=== PATIENT | male | born 1970 | race Hispanic/Latino ===

== ENCOUNTER 2018-02-19 08:22 | Outpatient (CLI) | payer BC ==
--- NOTE | 2018-02-19 10:07 | ULT ---
ABDOMINAL ULTRASOUND: DATE: 02/19/18. HISTORY: Hepatomegaly/splenomegaly. COMPARISON: None available. FINDINGS: He liver is at the upper limits of normal in size in craniocaudal dimensions measuring 17 cm, but oth erwise has a normal sonographic appearance. The spleen is not well seen due to shadowing from adjacent ribs but where visualized does appear to b e within normal limits. The greatest obtained measurement is 12 cm, which within normal limits. There is a small amount of echogenic material within the gallbladder lumen likely related to a small amount of gallbladder sludge. There is no gallbladder wall thickening or cystic fluid, and no gallbl adder calculi are seen. The common duct measures 0.3 cm in diameter, which is within normal limits. The visualized portion of the pancreas, visualized portions of the IVC, abdominal aorta, and bilatera l kidneys demonstrate a normal sonographic appearance. The right kidney measures 11.3 cm with the le ft kidney measuring 11.1 cm in length. IMPRESSION: 1. Trace amount of sludge within the gallbladder lumen. No gallbladder calculi are seen. 2. The spleen is partially obscured due to shadowing from adjacent ribs but is not enlarged in crani ocaudal dimensions. 3. The liver is at the upper limits of normal in size. POS: [facility]
== END 2018-02-19 08:23 | disposition home or self-care (01) ==
LOC: SCSULT 08:22
PROVIDERS: ATTEND Internal Medicine Hematology & Oncology
DX: D72.818 Other decreased white blood cell count (principal)
CPT/HCPCS: 76700

== ENCOUNTER 2018-11-04 09:26 | Outpatient (CLI) | payer BC ==
[~2018-11-04 09:26] MED LIST: Sodium Chloride 0.9% 15 ML NEB ONE
--- NOTE | 2018-11-05 00:19 | HP ---
HISTORY OF PRESENT ILLNESS: Mr. Chas Andre is a very pleasant 48-year-old gentleman, who presents [facility] for evaluation of an ulceration of the right medial lower leg in the region of the malleolus. The patient states that in April 2018, he noted the presence of a wound of his right lower leg in the region of the malleolus, which he attributed to irritation from his boot. The patient acquired a new pair of boots, but the wound still failed to progress in terms of healing in a timely manner. The patient was seen by Dr. Villa and referred to the [facility] for further evaluation and treatment. The patient's medical history is significant for venous ablation on the right in the past. The patient states that he also utilizes compression garments. PAST MEDICAL HISTORY: Negative for diabetes mellitus, hypertension, or coronary artery disease. The patient reports a history of childhood asthma. PAST SURGICAL HISTORY: 1. Herniorrhaphy. 2. Tonsillectomy. MEDICATIONS: Vitamin C. ALLERGIES: NO KNOWN DIAGNOSED ALLERGIES. SOCIAL HISTORY: Negative for tobacco use. The patient admits to the consumption of 8-10 glasses of wine per year. FAMILY HISTORY: Family history significant for coronary artery disease. The patient's father was diagnosed with coronary artery disease. Family history is negative for diabetes mellitus. PHYSICAL EXAMINATION: VITAL SIGNS: Temperature 98.0, pulse 58, blood pressure 108/60. GENERAL: A 48-year-old gentleman, lying on table in examination room, in no acute distress. HEENT: Normocephalic, atraumatic. NECK: No nuchal rigidity. CHEST: Clear to auscultation. CV: Regular rate and rhythm. ABDOMEN: Soft. EXTREMITIES: The ulceration over the right medial lower leg in the region of the malleolus has healed completely. A posterior tibial pulse is palpable on the right. [id number]-[id number] edema of the right and left lower extremities is present on exam today. NEUROLOGIC: Grossly nonfocal. ASSESSMENT AND PLAN: Varicose veins with ulcer and inflammation. The patient has been recommended to follow up with the provider who performed his venous ablation. The patient has also been advised to continue to utilize his compression garments. In addition arrangements may be made for in-home lymphedema therapy with a pneumatic pump, if the patient decides to proceed with in-home lymphedema therapy. I have also recommended aquatic therapy to Mr. Andre. The patient understands and is in agreement with the preceding treatment plan. He states he will consider proceeding with arrangements for in-home lymphedema therapy and may return to clinic on 11/11/2018, at which time these arrangements will be made. Job ID: [id number] MTDD
== END 2018-11-04 09:27 | disposition home or self-care (01) ==
LOC: WCC 09:26
PROVIDERS: ATTEND Family Medicine
DX: I83.218 Varicose veins of right lower extremity with both ulcer of other part of lower extremity and inflammation (principal); L97.919 Non-pressure chronic ulcer of unspecified part of right lower leg with unspecified severity
CPT/HCPCS: 97602; 99203; A4218; G0463

== ENCOUNTER 2020-03-16 07:29 | Outpatient (CLI) | payer BC ==
--- NOTE | 2020-03-16 08:23 | ULT ---
ULTRASOUND ABDOMEN COMPLETE: DATE: 03/16/2020 HISTORY: 49-year-old male with splenomegaly are 16.1. Follow-up. COMPARISON: 02/19/2018 FINDINGS: Gallbladder: Normal wall thickness. No gallstones identified. No pericholecystic fluid. Tiny amount o f gallbladder sludge. Liver: Normal parenchymal echogenicity. 20 cm craniocaudal length of right lobe. Bilateral kidneys: No hydronephrosis. Pancreas: Nonspecific sonographic appearance. Common duct caliber: 4 mm. Abdominal aorta: No aneurysm Inferior vena cava: Unremarkable where visualized. Spleen: 12.5 x 4.5 x 4.5 cm. Normal hilar concavity maintained, with no lobulations. IMPRESSION: 1) mild hepatomegaly. 2) spleen is near upper limits of normal in size, but this is not considered splenomegaly. 3) tiny amount of gallbladder sludge. 4) no interval change
== END 2020-03-16 07:30 | disposition home or self-care (01) ==
LOC: SCSULT 07:29
PROVIDERS: ATTEND Internal Medicine Hematology & Oncology
DX: R16.1 Splenomegaly, not elsewhere classified (principal); R16.0 Hepatomegaly, not elsewhere classified; K82.8 Other specified diseases of gallbladder
CPT/HCPCS: 93975

== ENCOUNTER 2021-04-30 17:13 | Day surgery (SDC) | payer BC, OTHER ==
[2021-04-30] MEDS ORDERED: EPINEPHRINE FS SCH (18:15)
[2021-04-30] MEDS ORDERED: ENOXAPARIN SODIUM FS SCH (18:15)
[2021-04-30] MEDS ORDERED: Phenylephrine 2.5% Ophth Soln 5 ML BOT ONE (18:22)
[2021-04-30] MEDS ORDERED: Cyclopentolate 1% Opth Drop 2 ML BOT ONE (18:22)
[2021-04-30 18:35] LABS: SARS-CoV-2 NAA Rapid Test Not Detected (NotDetected)
[2021-04-30] MEDS ORDERED: Fentanyl 100 MCG/2 ML VIAL ONE (19:19)
[2021-04-30] MEDS ORDERED: Midazolam HCl 2 mg/2 ml Vial ONE (19:19)
[2021-04-30] MEDS ORDERED: CEFAZOLIN 1 GM VIAL ONE (19:34)
[2021-04-30] MEDS ORDERED: Maxitrol 0.1% Opth Oint 3.5 GM TUBE ONE (19:34)
[2021-04-30] MEDS ORDERED: PROPOFOL 200 MG/20 ML VIAL ONE (19:34)
[2021-04-30] MEDS ORDERED: Lidocaine 4% PF 5 ML AMP ONE (19:34)
[2021-04-30] MEDS ORDERED: Bupivacaine PF 0.75% SDV 10 ML ONE (19:34)
[2021-04-30] MEDS ORDERED: Triamcinolone 40 MG/ML VIAL ONE (19:34)
[2021-04-30] MEDS ORDERED: ePHEDrine 50 MG/ML VIAL ONE (19:34)
[2021-04-30] MEDS ORDERED: Ondansetron PF 4 MG/2 ML Vial ONE (19:34)
[2021-04-30] MEDS ORDERED: Enoxaparin Sodium 30 MG/0.3 ML SYRINGE ONE (19:34)
[2021-04-30] MEDS ORDERED: Lidocaine 1% PF 5 ML VIAL ONE ×2 (19:34)
== END 2021-04-30 21:40 | disposition home or self-care (01) ==
LOC: SDC 17:13
PROVIDERS: ATTEND Ophthalmology Retina Specialist
PROC: 08T53ZZ Resection of Left Vitreous, Percutaneous Approach (ICD-10-PCS; principal; 2021-04-30)
DX: H33.012 Retinal detachment with single break, left eye (principal); Z20.822 Contact with and (suspected) exposure to COVID-19
CPT/HCPCS: 67025; J0690; J1650; J2250; J2405; J2704; J3010; J3301; J3490; U0002